=== PATIENT | female | born 1985 | race Caucasian/White ===

== ENCOUNTER 2019-05-16 02:10 | Outpatient (CLI) | payer BC, SELFPAY ==
--- NOTE | 2019-05-16 07:11 | DI.US_ITS ---
EXAM: US OB 1ST TRIMESTER CLINICAL HISTORY: ? DATES TECHNIQUE: Ultrasound performed using standard protocol. COMPARISON: No exams were available for comparison FINDINGS: Ob ultrasound was performed utilizing 1st trimester protocol. There is a single viable intrauterine gestation with crown-rump length measurements consistent with gestational age of 10 weeks 2 days and EDC 12/10/19. heart rate is 163 BPM.
== END 2019-05-16 02:30 ==
PROVIDERS: PCP Nurse Practitioner Community Health; Visit Provider Midwife
DX: Z34.91 Encounter for supervision of normal pregnancy, unspecified, first trimester (principal); Z3A.10 10 weeks gestation of pregnancy
CPT/HCPCS: 76801

== ENCOUNTER 2019-09-10 08:00 | Outpatient (CLI) | payer BC, SELFPAY | END 2019-09-10 08:20 | PROVIDERS: PCP Nurse Practitioner Community Health; Visit Provider Obstetrics & Gynecology | DX: R69 Illness, unspecified (principal) ==

== ENCOUNTER 2019-11-25 03:40 | Inpatient (IN) | payer BC, SELFPAY ==
--- NOTE | 2019-11-25 04:43 | W.PM.HP.N ---
Date of service: 11/25/19 Time of Service: 04:44 Assessment and Plan Assessment and plan (1) Breech presentation delivered: Status: Acute History of Present Illness History of Present Illness Chief Complaint: Jaciel breech presentation in labor Narrative: Patient is a 34-year-old G1 female with a estimated date of delivery 12/12/2019 by a LMP who has received care from TEDDY Beltran, and who was diagnosed with a jaciel breech presentation complete cervical dilatation and getting maternal expulsive efforts. Patient had been laboring at home for the past 24 hours with reassuring status. The decision was made to transport the patient in a private car to [facility]. Upon arrival at [facility] she was transported via wheelchair to the operating room where a team was waiting with a double OR set up. Sterile vaginal exam showed patient to be completely dilated with a jaciel breech presentation with spine to maternal left and +2 station. heart rate in the 150 range category 1 tracing no decelerations. Estimated weight 3600 gm. After discussion with the anesthesia, nursing, and midwifery providers the decision was made to proceed with a vaginal breech delivery. Examination revealed adequate pelvic dimensions with excellent maternal expulsive effort. Patient continued to push effectively and the buttocks were delivered followed by the trunk. The fetus legs trunk were supported with a sterile towel allowing the position to be parallel to the floor. At the level of the shoulder blades both middle arms were swept across the chest and using a Brach maneuver the head was delivered atraumatically. The umbilical cord was doubly clamped and cut and the infant handed off to the waiting pediatric team. We were unable to obtain a arterial cord gas and instead a venous cord gas sample was obtained. Oxytocin infusion was initiated and the placenta was delivered intact with a normal configuration and a three-vessel cord over an intact perineum. Estimated blood loss: 200 cc Review of Systems Constitutional Comments: Patient experienced onset of contractions with spontaneous rupture of membranes at 11/24/2019 at 2200 hrs. She labored at home with reassuring heart rate it was found to be 8 cm at approximately 01:43 morning. When she was completed dilated meconium was noted and breech presentation was diagnosed. Respiratory Respiratory: Reports system reviewed and no additional complaints, except as documented Gastrointestinal Gastrointestinal: Reports system reviewed and no additional complaints, except as documented Genitourinary Genitourinary: Reports as per [facility] Integumentary/Breasts Skin/Breast: Reports system reviewed and no additional complaints, except as documented Psychiatric Psychiatric: Reports as per HPI (Tolerating contractions well comfortable with plan for vaginal breech deliv) [facility] Medical History (Updated 11/25/19 @ 05:42 by Karen Maynard MD) Breech presentation delivered (Acute) 11/25/2019. Breech presentation of fetus palpable vaginally (Acute) History of UTI (Acute) Social History (Updated 11/25/19 @ 05:15 by Karen Maynard MD) Smoking/Tobacco Use Status: Former Tobacco Use Alcohol Intake: never Details: None during Drug use: Never Household members: significant other and other Details: [place] Number of Children: 1 History History 1 Para 1 Hx # Term Pregnancies 1 Multiple births Hx # Pregnancies Ectopic pregnancies AB induced Hx Number of Living Children 1 AB spontaneous Meds Home Medications and Allergies Home Medications Medication Instructions Recorded Confirmed Type Unknown [No Known Home Meds] 11/25/19 11/25/19 History Allergies Allergy/AdvReac Type Severity Reaction Status Date / Time No Known Allergies Allergy Verified 11/25/19 05:34 Exam Narrative Exam Narrative: Patient had been laboring at home for the past 24 hours with reassuring status. The decision was made to transport the patient in a private car to [facility]. Upon arrival at [facility] she was transported via wheelchair to the operating room where a team was waiting with a double OR set up. Sterile vaginal exam showed patient to be completely dilated with a jaciel breech presentation with spine to maternal left and +2 station. heart rate in the 150 range category 1 tracing no decelerations. Estimated weight 3600 gm. After discussion with the anesthesia, nursing, and midwifery providers the decision was made to proceed with a vaginal breech delivery. Examination revealed adequate pelvic dimensions with excellent maternal expulsive effort. Patient continued to push effectively and the buttocks were delivered followed by the trunk. The fetus legs trunk were supported with a sterile towel allowing the position to be parallel to the floor. At the level of the shoulder blades both middle arms were swept across the chest and using a Brach maneuver the head was delivered atraumatically. The umbilical cord was doubly clamped and cut and the handed off to the waiting pediatric team. We were unable to obtain a arterial cord gas and instead a venous cord gas sample was obtained. Oxytocin infusion was initiated and the placenta was delivered intact with a normal configuration and a three-vessel cord over an intact perineum. Estimated blood loss: 200 cc Chest Chest: normal inspection of the chest Resp Effort & Inspection: normal respiratory effort Auscultation: clear to auscultation bilaterally Cardio Rate: regular rate Rhythm: regular rhythm Manual OB Exam: dilated 10, effaced fully and station '+2 (On presentation to the OR) Amniotic Fluid: meconium (Black tarry meconium present in the vaginal canal) Results Labs Result diagrams: 11/25/19 Unknown COVID-19 Screening Have you,or household,traveled outside [place] in last 14 days?: No Recent travel in the [place] within the last 14 days?: No Recent out of the country travel within the last 14 days?: No Exposure or possible exposure to illness during travel?: No Had IN PERSON contact w/suspected or confirmed C-19 person: No Have you had the following symptoms in the past few days?: No
[2019-11-25 05:23] LABS: HCT 37.3 % (36.0-46.0); HGB 12.4 g/dL (11.2-15.7); MCH 31.2 pg (27.0-33.0); MCHC 33.2 % (32.0-36.0); MCV 93.7 fL (80-95); MPV 12.5 fL (8.0-11.0); Platelet Count 132 10^3/uL (130-400); RBC 3.98 10^6/uL (3.93-5.22); RDW 12.1 % (11.7-14.6); RDW-SD 41.7 fL; WBC 18.12 10^3/uL (4.4-10.8)
--- NOTE | 2019-11-25 10:03 | W.PM.DS.N ---
Date of service: 11/25/19 Time of Service: 10:03 DS: Diagnosis Discharge Diagnosis (1) Breech presentation delivered: Status: Acute Discharge Plan Disposition Patient Disposition: HOME Condition: Good Discharge Details Reason For Visit: Admit Date/Time: 11/25/19 03:40 Admit Provider: Karen Maynard Attending Provider: Karen Maynard Primary Care Provider: Michael Orlando Hospital Course Hospital Course: Patient is a 34-year-old G1, P1 female who underwent a spontaneous vaginal delivery of a viable female infant in the jaciel breech presentation. She will be named Elsy. Pt has been under the care of Heather Hatch of [facility] for an uncomplicated course. She was laboring at home when the jaciel breech presentation was diagnosed. Pt was transported to [facility] and underwent a delivery in the operating room with a double set up. The infant weighed 2645 g (5 pounds 8 ounces). course was uncomplicated she was discharged home the day delivery with plans for follow-up with her medical assembler and the pediatric care provider for the . Home Meds and New Rx's Prescriptions: No Action No Known Home Meds RF: 0 Discharge Instructions Stand Alone Forms: BC Post Vaginal Deliver, BC Instructions Activity:: Activity as Tolerated Equipment/Supplies:: No Equipment Needed Diet:: As Tolerated Discharge Orders Discharge Orders: Discharge Order (Routine); Ordered 11/25/19 Ordered By: Karen Maynard DS: Summary Status at Discharge Functional status at discharge: independent ambulation Overall status at discharge: patient is back to baseline Mental Status: mental status grossly normal Speech and Movement: speech and movement normal Mood: congruent mood Affect: normal affect Exam Psych Mental Status: mental status grossly normal Speech and Movement: speech and movement normal Mood: congruent mood Affect: normal affect DS: Data Data Completed and Pending Labs on day of discharge: Labs from last 24 hours 11/25/19 11/25/19 11/25/19 05:15 05:15 05:15 WBC 18.12 H RBC 3.98 Hgb 12.4 Hct 37.3 MCV 93.7 MCH 31.2 MCHC 33.2 RDW 12.1 Plt Count 132 MPV 12.5 H COVID-19 PCR Pending Nasopharyn COVID-19 PCR Pending Ref Test Perform Site Pending Patient ABO/Rh Antibody Screen Screen Pending Unit Expiration Date Product Lot # 11/25/19 05:15 WBC RBC Hgb Hct MCV MCH MCHC RDW Plt Count MPV COVID-19 PCR Nasopharyn COVID-19 PCR Ref Test Perform Site Patient ABO/Rh A Negative Antibody Screen Negative Screen Unit Expiration Date [id number] Product Lot # [id number] [facility] Medical History (Updated 11/25/19 @ 05:42 by Karen Maynard MD) Breech presentation delivered (Acute) 11/25/2019. Breech presentation of fetus palpable vaginally (Acute) History of UTI (Acute) Social History (Updated 11/25/19 @ 05:15 by Karen Maynard MD) Smoking/Tobacco Use Status: Former Tobacco Use Alcohol Intake: never Details: None during Drug use: Never Household members: significant other and other Details: [place] Number of Children: 1 History History 1 Para 1 Hx # Term Pregnancies 1 Multiple births Hx # Pregnancies Ectopic pregnancies AB induced Hx Number of Living Children 1 AB spontaneous
[2019-11-25 14:26] LABS: COVID-19 RT-PCR UVMMC Result Negative (Negative)
== END 2019-11-25 14:15 | disposition home or self-care (01) | DRG 807 ==
PROVIDERS: Admitting Provider Obstetrics & Gynecology Gynecology; PCP Nurse Practitioner Community Health; Visit Provider Obstetrics & Gynecology Gynecology
PROC: 10E0XZZ Delivery of Products of Conception, External Approach (ICD-10-PCS; CPT 59409; principal; 2019-11-25 03:45)
DX: O32.1XX0 Maternal care for breech presentation, not applicable or unspecified (principal); Z37.0 Single live birth; O77.0 Labor and delivery complicated by meconium in amniotic fluid; Z11.59 Encounter for screening for other viral diseases; O75.89 Other specified complications of labor and delivery; Z67.11 Type A blood, Rh negative; Z3A.37 37 weeks gestation of pregnancy
CPT/HCPCS: 36415; 85027; 85461; 86850; 86900; 86901; 90384; 99222; 99238; U0003; J2370; J2405; J2790

== ENCOUNTER 2019-12-09 19:04 | Emergency (ER) | payer BC, SELFPAY ==
[2019-12-09 19:12] VITALS: BP 113/70; PULSE 110; RESP 18; TEMP 37
--- NOTE | 2019-12-09 19:15 | W.ED.GENAD ---
Discharge Plan Disposition Patient Disposition: HOME Condition: Good Discharge Details Chief Complaint: FlankPain Clinical Impression: Back muscle spasm, Breast pain Primary Care Provider: Michael Orlando ED Provider: Terra Jimenez Home Meds and New Rx's Prescriptions: No Action No Known Home Meds RF: 0 Discharge Instructions Instructions: Muscle Spasm (ED) Additional Instructions: In regard to your breast pain, please try and apply heat, massage this area while your child is nursing. Alternatively, you could help. I do not see any evidence to suggest mastitis at this point. You are quite tight with muscle spasm noted on the left side of your back. Please encourage gentle stretching, heat. Tylenol and/or ibuprofen as needed for discomfort. You do not have any kidney discomfort today. As you are no pain with urination and frequency have subsided, would like to hold off on treating you with antibiotics for urinary tract infection until the culture of your urine has come back. We will contact you with any positive results. If you develop fevers, chills, pain with urination, abdominal pain, vomiting or other new/worsening symptom please seek care urgently once again. Otherwise, please keep your follow-up appointment next week with. Referrals: Michael Orlando [Primary Care Provider] - Discharge Data Discharge Date/Time-TO BE ENTERED AT DEPARTURE: 12/09/19 20:35 Medical Decision Making Please see HPI. Patient 2 week pospartum. Has left breast pain, states it has been present for the past few days. On exam, area she is indicating is firm but equal to that of the right breast. Most consistent with milk. No evdience to suggest infection. No fluctuance, erythema, warmth. She reports being afebrile and is afebrile here. She is slightly tachycardic but she appears anxious, nontoxic. She is also endorsing left flank pain. No CVA tenderness on exam. She denies other symptoms of UTI. She has notable spasm, L>R of the paraspinal lower thoracic spine. She states that it is in this area she has discomfort but none elicited with palpation. She does have discomfort with extension of the spine in this area. She states that she has been hunching forward when breast feeding. We discussed changing position. She has some mild abdominal discomfort on palpation but had not noted this prior to coming in. She has no peritoneal findings. We discussed [id number] this up further but she would prefer to wait and will come back if this worsens. Urine was contaminated, rare bacteria. It has been send for culture. Her urine is not overly concerning for infection and her urinary symptoms have resolved. She has cause identified on exam for her flank pain. We discussed starting her on abx vs. watch and wait approproach. She would prefer to wait. She was given strict return precautions. She has appointment next week with OB. She will increase hydration, reposition infant when feeding and stretch. All of her questions and concerns were addressed, she is ijn agreement with this plan. We will call if there is concern for infection on culture. HPI General Mode of arrival: ambulatory. Date/Time Provider Initiated Documentation: 12/09/19 19:15. Limitations to Documentation: no limitations. Information obtained by: patient, RN notes reviewed and old records reviewed. HPI Narrative: Loli is a pleasant 34 year old female who is 2 weeks post . Had breach delivery in OR. States that for the 1.5 weeks she was having dysurea which has since resolved. She denies increased frequency/urgency. She states that over the past few days she has develops left flank pain. She thought this was associated with positioning for breast feeding. However, her employment interviewer was appropriately concerned for potential pyelonephritis with her now resolved dysurea. She denies fevers/chills. She denies chane in bowel habits. States that vaginal bleeding has been slowing down and is having minimal at this time. She states that she is also having left breast pain. States that this is the side her child typically nurses from and that she uses a pump on the right. She has not noted any discoloration. She states that she is otherwise feeling well. Related Data Home Medications Medication Instructions Recorded Confirmed Unknown [No Known Home Meds] 11/25/19 11/25/19 Allergies Allergy/AdvReac Type Severity Reaction Status Date / Time No Known Allergies Allergy Verified 11/25/19 05:34 General Stated Complaint: FlankPain SENTHIL: 3 Review of Systems Constitutional Constitutional: Reports as per HPI, Denies chills, Denies fatigue, Denies fever(s) and Denies headache(s) ENT Ears, Nose, Mouth, and Throat: Denies headache(s) Cardiovascular Cardiovascular: Reports as per HPI, Denies chest pain and Denies dyspnea Respiratory Respiratory: Reports as per HPI, Denies cough and Denies dyspnea Gastrointestinal Gastrointestinal: Reports as per HPI Genitourinary Genitourinary: Reports as per HPI Musculoskeletal Musculoskeletal: Reports as per HPI and Reports back pain Integumentary/Breasts Skin/Breast: Reports as per HPI and Denies rash Neurologic Neurologic: Reports as per HPI and Denies headache(s) Endocrine Endocrine: Denies fatigue [facility] Medical History (Updated 12/09/19 @ 20:05 by MIKE Miranda) Breech presentation delivered (Acute) 11/25/2019. Breech presentation of fetus palpable vaginally (Acute) History of UTI (Acute) Social History Smoking/Tobacco Use Status: Former Tobacco Use Alcohol Intake: never Details: None during Drug use: Never Household members: significant other and other Details: [place] Number of Children: 1 History History 1 Para 1 Hx # Term Pregnancies 1 Multiple births Hx # Pregnancies Ectopic pregnancies AB induced Hx Number of Living Children 1 AB spontaneous Exam Const General: cooperative, healthy appearing, comfortable, no acute distress, well developed and anxious Nutritional Appearance: average body habitus and well nourished Orientation: alert and awake HENMT Head: normal to inspection Mouth: moist mucous membranes Chest Breast inspection: normal inspection of the breasts, normal inspection of the axillae and Other (no erythema, warmth, drainage. No discharge from nipples) Breast palpation: normal palpation of the breasts (firm areas to bilateral breasts upper outer corners, equal), normal palpation of the axillae and no axillary lymphadenopathy Resp Effort & Inspection: normal respiratory effort, able to speak in complete sentences and no respiratory distress Auscultation: clear to auscultation bilaterally, no rales, no rhonchi and no wheezes Cardio Rate: regular rate Rhythm: regular rhythm Heart Sounds: S1 normal and S2 normal GI Inspection: normal to inspection Palpation: soft, no hepatosplenomegaly, not firm, no guarding, no masses, not rigid and tender (mild tenderness lower abdomen, R>L) not at McBurney's point, Ely's sign negative, obturator sign negative, psoas sign negative and with no rebound tenderness Percussion: normal to percussion Auscultation: normal bowel sounds Back/Spine/Pelvis Back: no CVA tenderness Thoracic/Lumbar Spine: thoracic and lumbar spine normal to inspection, thoraco-lumbar ROM normal, No paraspinal tenderness, No thoraco-lumbar ROM limited, thoraco-lumbar spasm (notable spasm on left side, no pain with palp), No thoracic spinal tenderness, No lumbar spinal tenderness and No straight leg raise positive Sacroiliac joints: bilaterally nontender Skin General skin exam: no rashes or lesions noted Trauma: no lacerations or abrasions Neuro General: patient alert and patient awake Cognition: normal cognition Speech: speech normal Gait: normal gait Psych Appearance: grossly normal and well kempt Mental Status: mental status grossly normal Speech and Movement: speech and movement normal Course Vital Signs Vital signs: Vital Signs Temperature 37.0 C 12/09/19 19:12 Pulse 110 H 12/09/19 19:12 Respiratory Rate 18 12/09/19 19:12 Blood Pressure 113/70 12/09/19 19:12 Temperature 37.0 C 12/09/19 19:12 Temperature Source Temporal Artery Scan 12/09/19 19:12 Pulse 110 H 12/09/19 19:12 Respiratory Rate 18 12/09/19 19:12 Respiratory Effort Non-Labored 12/09/19 19:12 Blood Pressure 113/70 12/09/19 19:12 Blood Pressure Position Sitting 12/09/19 19:12 Pain Level 7 12/09/19 19:12
[2019-12-09 19:26] LABS: Bilirubin Negative (Negative); Blood Moderate (Negative); Clarity Clear (Clear); Glucose Negative (Negative); Ketones Negative (Negative); Leukocyte Esterase Small (Negative); Nitrite Negative (Negative); Urobilinogen 0.2 EU/dL (Up TO 0.2)
[2019-12-09 19:48] LABS: Bacteria Rare HPF (Negative); C & S Indicated? Yes; Crystals Negative HPF (Negative); Epithelial Cells Many HPF (Negative); Mucus Negative (Negative); Other Cells Mod Transitional (Negative); RBC 0-2 HPF (0-2)
== END 2019-12-09 20:35 | disposition home or self-care (01) ==
PROVIDERS: Nurse Practitioner Family; Emergency Provider Physician Assistant; PCP Nurse Practitioner Community Health
DX: O92.29 Other disorders of breast associated with pregnancy and the puerperium (principal); M62.830 Muscle spasm of back; Z87.440 Personal history of urinary (tract) infections
CPT/HCPCS: 99282; 81003; 81015; 87086; 99283

== ENCOUNTER 2020-03-11 19:19 | Outpatient (REF) | payer BC, SELFPAY ==
[2020-03-13 16:40] LABS: COVID-19 RT-PCR Result NEGATIVE (Negative)
== END 2020-03-11 19:39 ==
LOC: NCHCN 19:19
PROVIDERS: PCP Nurse Practitioner Community Health; Visit Provider Nurse Practitioner Family
DX: Z20.828 Contact with and (suspected) exposure to other viral communicable diseases (principal)
CPT/HCPCS: U0003

== ENCOUNTER 2020-03-17 02:11 | Outpatient (CLI) | payer BC, SELFPAY ==
[2020-03-19 16:13] LABS: COVID-19 RT-PCR Result NEGATIVE (Negative)
== END 2020-03-17 02:31 ==
PROVIDERS: PCP Nurse Practitioner Community Health; Visit Provider Nurse Practitioner Family
DX: Z20.828 Contact with and (suspected) exposure to other viral communicable diseases (principal)
CPT/HCPCS: U0003

== ENCOUNTER 2020-08-06 10:46 | Outpatient (REF) | payer BC, SELFPAY ==
--- NOTE | 2020-08-06 10:00 | PAPFT_PTH ---
PATIENT: Ilia Shankar LOC: [facility] U#:[id number] AGE/SX: 35/F ROOM: RE08/06/[address]: Alex Trinh : 1985 BED: DIS: 08/06/2020 SPEC #: [id number] RECD: 08/06/20 15:25 STATUS: MAY REKeith #: [id number] NANDO: 08/06/20 10:[address]: Alex Trinh DEPT: [facility] Cytology RECD BY: Yomaira Batres ENTERED: 08/06/20 15:25 SP TYPE: PAPFT OTHR DR: Michael Orlando Tissues: 1 - CX/ENDOCX FOR PAP SMEARS Procedures: PAP THIN PREP/UVM Screening HPV DNA PROBE Comments: [id number]
== END 2020-08-06 10:47 | disposition home or self-care (01) ==
LOC: NCHCN 10:46
PROVIDERS: PCP Nurse Practitioner Community Health; Visit Provider Nurse Practitioner Family
DX: Z00.00 Encounter for general adult medical examination without abnormal findings (principal); Z12.4 Encounter for screening for malignant neoplasm of cervix; Z11.51 Encounter for screening for human papillomavirus (HPV)
CPT/HCPCS: 88142; 87624

== ENCOUNTER 2021-03-22 16:00 | Outpatient (REF) | payer BC, SELFPAY | END 2021-03-22 16:01 | disposition home or self-care (01) | LOC: LBN 16:00 | PROVIDERS: PCP Nurse Practitioner Community Health; Visit Provider Nurse Practitioner Family | DX: R35.0 Frequency of micturition (principal) | CPT/HCPCS: 87086; 87480; 87510; 87660 ==

== ENCOUNTER 2021-06-24 01:46 | Outpatient (CLI) | payer OTHER, SELFPAY ==
[2021-06-24 10:26] LABS: Abs Immature Grans 0.03 10^3/uL (0.0-0.06); Absolute Basophil Count 0.01 10^3/uL (0.0-0.2); Absolute Eosinophil Count 0.04 10^3/uL (0.0-0.7); Absolute Lymphocyte Count 1.48 10^3/uL (1.2-3.4); Absolute Monocyte Count 0.45 10^3/uL (0.1-0.8); Absolute Neutrophil Count 5.47 10^3/uL (1.2-6.7); Basophils % 0.1; Eosinophils % 0.5; HCT 38.6 % (36.0-46.0); HGB 12.6 g/dL (11.2-15.7); Immature Grans % 0.4; Lymphocytes % 19.8; MCH 31.3 pg (27.0-33.0); MCHC 32.6 % (32.0-36.0); MPV 11.4 fL (8.0-11.0); Neutrophils % 73.2; Nucleated RBC 0 %; Platelet Count 153 10^3/uL (130-400); RBC 4.02 10^6/uL (3.93-5.22); RDW 12.2 % (11.7-14.6); RDW-SD 43.2 fL; WBC 7.48 10^3/uL (4.4-10.8)
== END 2021-06-24 01:47 | disposition home or self-care (01) ==
LOC: LBO 01:46
PROVIDERS: PCP Nurse Practitioner Community Health; Visit Provider Midwife
DX: Z34.80 Encounter for supervision of other normal pregnancy, unspecified trimester (principal)
CPT/HCPCS: 86850; 86900; 86901; 85025

== ENCOUNTER 2021-07-21 00:59 | Outpatient (CLI) | payer OTHER, SELFPAY ==
[2021-07-21 01:33] VITALS: BP 111/55; PULSE 67; TEMP 36.7
[2021-07-21 02:04] LABS: Bilirubin Negative (Negative); Blood Negative (Negative); Clarity Sl Cloudy (Clear); Glucose Negative (Negative); Ketones Negative (Negative); Leukocyte Esterase Negative (Negative); Nitrite Negative (Negative); Urobilinogen 0.2 EU/dL (Up TO 0.2); pH 7.5 (5-8)
[2021-07-21 02:31] LABS: Fetal Fibronectin Negative (Negative)
--- NOTE | 2021-07-21 07:15 | PDOC.NST_ITS ---
Date of service: 07/21/21 Time of Service: 07:15 NST Evaluation Reason for NST Reasons for Nonstress Test: OTHER, SEE COMMENT Reason for NST Other: Rule out labor Gestational Age Gestational Age in Weeks and Days: 32 Weeks and 0Days Test and Monitor Explained Test/Monitor Explained: Test Explained, Monitor Explained and Patient Verbalized Understanding Vital Signs Blood Pressure: 111/55 Pulse: 67 Temperature: 98.1 F Urine Results Urine Protein: Negative Urine Ketones: Negative Urine Glucose: Negative Urine Blood: Negative NST Information Date on Monitor: 07/21/21 Time on Monitor: 01:39 Date off Monitor: 07/21/21 Time off Monitor: 02:40 Total Time on Monitor: 61 NST Interventions: PO Hydration Contraction Frequency: patient had 4 contractions q3 minutes that stopped at 0202 NST Evaluation Patient States Movement: Present FHR Baseline: 135 Variability: Moderate 6-25 bpm Accelerations: 15x15 and Prolonged Decelerations: Variable NST Results: Reactive Note NST Note Note: Pt is a client of [facility] who called Heather Hatch [facility] to report q 10min contractions since 2200 07/20/21. Pt was eval on BC by myself. FFN neg. No further contractions after arrival on . SVE Closed. 75%, -1, midposition and soft. No focal abdominal pain. Pt was discharged to home with instructions to decrease activity level today and f/u with [facility] today. She is agreeable to the plan. NST Reviewed and Verified by: Karen Maynard
[2021-07-21 07:18] VITALS: BP 111/55; PULSE 67; TEMP 36.7
== END 2021-07-21 02:50 | disposition home or self-care (01) ==
LOC: BCD 01:33 → OBS 02:08
PROVIDERS: PCP Nurse Practitioner Community Health; Visit Provider Obstetrics & Gynecology Gynecology
DX: O47.03 False labor before 37 completed weeks of gestation, third trimester (principal); Z3A.32 32 weeks gestation of pregnancy
CPT/HCPCS: 59025; 81003; 82731

== ENCOUNTER 2021-08-30 19:59 | Outpatient (REF) | payer OTHER, SELFPAY | END 2021-08-30 20:00 | disposition home or self-care (01) | LOC: LBN 19:59 | PROVIDERS: PCP Nurse Practitioner Community Health; Visit Provider Nurse Practitioner Family | DX: R35.0 Frequency of micturition (principal) | CPT/HCPCS: 87086 ==

== ENCOUNTER 2021-11-16 19:22 | Outpatient (REF) | payer OTHER, SELFPAY | END 2021-11-16 19:23 | disposition home or self-care (01) | LOC: LBN 19:22 | PROVIDERS: PCP Nurse Practitioner Community Health; Visit Provider Advanced Practice Midwife | DX: N94.10 Unspecified dyspareunia (principal) | CPT/HCPCS: 87480; 87510; 87660 ==

== ENCOUNTER 2022-04-01 07:33 | Emergency (ER) | payer OTHER, SELFPAY ==
[2022-04-01 07:42] VITALS: BP 120/74; PULSE 75; RESP 18; TEMP 37; O2SAT 99
--- NOTE | 2022-04-01 08:00 | DI.RAD_ITS ---
Exam(s) XR WRIST LT COMPLETE EXAM: XR WRIST LT COMPLETE CLINICAL HISTORY: pain and swelling post fall. TECHNIQUE: 2D digital imaging was performed. COMPARISON: No exams were available for comparison FINDINGS: 3 views No evidence of fracture or dislocation nor significant ulnar variance. Scaphoid and scapholunate dis tance are normal. Bone density normal. No osseous lesions. IMPRESSION: No significant osseous findings in the wrist. DATA REPOSITORY: RADIATION DOSE DELIVERED:
--- NOTE | 2022-04-01 08:17 | ED.GENADUL_ITS ---
Discharge Plan Disposition Patient Disposition: Home Condition: Stable Discharge Details Clinical Impression: Muscle strain of left wrist, Concussion Primary Care Provider: Michael Orlando ED Provider: Yomaira Petty Home Meds and New Rx's Prescriptions: No Action No Known Home Meds Discharge Instructions Instructions: Muscle Strain (ED), Concussion (ED) Additional Instructions: Take ibuprofen and Tylenol as needed for pain Return with vomiting, worsening headache, or with any new or worsening complaints Repeat x-ray in 1 week with persistent pain Please refer to enclosed packet regarding concussion and muscle strain Use splint to allow your wrist to rest for several days, use wrist as tolerated Discharge Data Discharge Date/Time-TO BE ENTERED AT DEPARTURE: 04/01/22 09:13 Medical Decision Making This 36-year-old female who presents with history of fall yesterday after slipping on ice, hitting her head without loss of consciousness and left wrist pain Patient likely has concussion signs and symptoms, she does not warrant a CT scan, she has a nonfocal neurological exam with a persistent but not worsening headache and is not vomiting and completely alert and oriented in the absence of loss of consciousness or any anticoagulation, we talked about CT imaging, however think the risk of radiation outweighs benefit at this time She will return should she have new or worsening complaints X-ray of her left wrist does not show evidence of acute abnormality She is placed in a splint for comfort Repeat x-ray in 1 week with persistent symptoms recommended Discharged home in stable condition with stable vitals HPI General Date/Time Provider Initiated Documentation: 04/01/22 08:03 . HPI Narrative: This 36-year-old female presents with report of headache after fall and hitting her head on ice yesterday and left wrist pain. Headache is persistent but not changing and denies any loss of consciousness, nausea vomiting, vision change, or chance of . Denies any neck discomfort or coagulopathy. Was ambulatory after the event. Predominantly presents today secondary to persistent left wrist pain worse with movement Related Data Home Medications Medication Instructions Recorded Confirmed Unknown [No Known Home Meds] 11/25/19 11/16/21 Allergies Allergy/AdvReac Type Severity Reaction Status Date / Time No Known Allergies Allergy Verified 04/01/22 07:45 General Stated Complaint: HeadInjury SENTHIL: 4 Review of Systems All systems reviewed & are unremarkable except as noted in HPI and below PFSH All Active Problems (Updated 04/01/22 @ 08:45 by MIKE Neves) Muscle strain of left wrist (Acute) Concussion (Acute) Dyspareunia, female (Acute) Medical History (Updated 04/01/22 @ 08:45 by MIKE Neves) Breech presentation delivered 11/25/2019. Breech presentation of fetus palpable vaginally History of UTI Care by [facility]: Heather Mccloud LMVT Social History Smoking/Tobacco Use Status: Former Tobacco Use Smoking risk assessment performed?: Yes Alcohol Intake: current Alcohol Intake frequency: holidays/special occasions only Details: None during Drug use: Never Substance use type: does not use Household members: significant other and other Details: [place] Number of Children: 1 Do you feel safe at home: Yes Do you feel safe in your relationship?: Yes History History 1 Para 1 Hx # Term Pregnancies 1 Multiple births Hx # Pregnancies Ectopic pregnancies AB induced Hx Number of Living Children 1 AB spontaneous Exam Const General: cooperative, comfortable and no acute distress Orientation: alert and oriented x3 HENMT Other: No visible sign of trauma, no hemotympanum Eyes Pupils: PERRL EOM: EOM intact bilaterally Neck Other: No midline tenderness Chest Chest: normal inspection of the chest Resp Effort & Inspection: normal respiratory effort Auscultation: clear to auscultation bilaterally Cardio Rate: regular rate Rhythm: regular rhythm GI Inspection: normal to inspection Other: No abdominal tenderness Skin General skin exam: no rashes or lesions noted Neuro General: patient alert and patient oriented x3 Other: Strength and sensation intact distally, GCS 15, ambulatory steady gait Extrem General: normal to inspection Other: Left wrist with tenderness, no visible signs of trauma, neurovascularly intact, no tenderness to hand, elbow, or shoulder Course Vital Signs Vital signs: Vital Signs Temperature 37.0 C 04/01/22 07:42 Pulse 75 04/01/22 07:42 Respiratory Rate 18 04/01/22 07:42 Blood Pressure 120/74 04/01/22 07:42 Pulse Oximetry 99 04/01/22 07:42 Temperature 37.0 C 04/01/22 07:42 Temperature Source Temporal Artery Scan 04/01/22 07:42 Pulse 75 04/01/22 07:42 Respiratory Rate 18 12/24/22 07:42 Respiratory Effort Non-Labored 04/01/22 07:46 Respiratory Depth Normal 04/01/22 07:46 Blood Pressure 120/74 04/01/22 07:42 Blood Pressure Position Sitting 04/01/22 07:42 Pulse Oximetry 99 04/01/22 07:42 Oxygen Delivery Method Room Air 04/01/22 07:42 Oxygen Flow Rate 0 04/01/22 07:42 PAWSS Have you Been Recently Intoxicated or Drunk Within the Last 30 days?: No Have you Ever Experienced Previous Episodes of Alcohol Withdrawal?: No Have you ever Experienced Withdrawal Seizures?: No Have you ever Experienced Delirium Tremens(DT)s?: No Have you ever undergone Alcohol Rehabilitation Treatment (i.e, inpt ot outpatient treatment programs)?: No Have you ever Experienced Blackouts?: No Have you ever Combined Alcohol with other Downers within the last 90 days?: No Have you ever Combined Alcohol with any other Substance of Abuse during the last 90 days?: No Positive Blood Alcohol level on Presentation? [PCS.BAL]: No Evidence of Increased Autonomic Activity (i.e. HR>120, tremor, sweating, agitation, nausea)?: No Result: 0
[2022-04-01 08:32] VITALS: BP 102/64; PULSE 67; RESP 16; TEMP 36.7; O2SAT 98
--- NOTE | 2022-04-01 08:36 | DI.VRAD_ITS ---
PROCEDURE INFORMATION: Exam: XR Left Wrist Exam date and time: 04/01/2022 8:24 AM Age: 36 years old Clinical indication: Other: Pain and swelling post fall TECHNIQUE: Imaging protocol: Radiologic exam of the Left wrist. Views: 3 or more views. COMPARISON: No relevant prior studies available. FINDINGS: Bones/joints: No acute fracture or dislocation is identified. No focal lytic or blastic lesion is identified. There is no osseous erosion or cortical destruction. Soft tissues: Grossly unremarkable. IMPRESSION: No acute fracture or dislocation identified. Dictated and Authenticated by: Ken Oneal MD. Ordering:MELISSA Burnette MD
== END 2022-04-01 09:13 | disposition home or self-care (01) ==
PROVIDERS: Emergency Provider Physician Assistant; PCP Nurse Practitioner Community Health
DX: S66.912A Strain of unspecified muscle, fascia and tendon at wrist and hand level, left hand, initial encounter (principal); S06.0X0A Concussion without loss of consciousness, initial encounter; W00.0XXA Fall on same level due to ice and snow, initial encounter; W22.8XXA Striking against or struck by other objects, initial encounter
CPT/HCPCS: 99283; 73110; 99282

== ENCOUNTER 2022-06-14 17:13 | Outpatient (REF) | payer OTHER, SELFPAY | END 2022-06-14 17:14 | disposition home or self-care (01) | LOC: LBN 17:13 | PROVIDERS: PCP Nurse Practitioner Community Health; Visit Provider Nurse Practitioner Family | DX: R10.9 Unspecified abdominal pain (principal); R30.0 Dysuria | CPT/HCPCS: 87086; 87480; 87510; 87660 ==

== ENCOUNTER 2022-09-01 16:08 | Outpatient (REF) | payer OTHER, SELFPAY ==
[2022-09-01 16:49] LABS: Anion Gap 5.7 mmol/L (3-11); BUN 17 mg/dL (7-18); CO2 28.3 mmol/L (21.0-32.0); CREATININE 0.7 mg/dL (0.55-1.02); Chloride 105 mmol/L (98-107); Estimated GFR 113.46 (mL/min/1.73m2); Glucose 89 mg/dL (74-106); Potassium 4.2 mmol/L (3.5-5.1); Sodium 139 mmol/L (136-145); TSH (W/Ref FT4) 2.35 uIU/mL (0.36-3.74)
[2022-09-01 17:42] LABS: Hemoglobin A1C 4.9 % (<5.7)
== END 2022-09-01 16:09 | disposition home or self-care (01) ==
LOC: NCHCN 16:08
PROVIDERS: PCP Nurse Practitioner Community Health; Visit Provider Nurse Practitioner Family
DX: B37.2 Candidiasis of skin and nail (principal)
CPT/HCPCS: 80048; 83036; 84443

== ENCOUNTER 2022-09-25 13:59 | Outpatient (REF) | payer OTHER, SELFPAY | END 2022-09-25 14:00 | disposition home or self-care (01) | LOC: LBN 13:59 | PROVIDERS: PCP Nurse Practitioner Community Health; Visit Provider Advanced Practice Midwife | DX: N89.8 Other specified noninflammatory disorders of vagina; N94.19 Other specified dyspareunia | CPT/HCPCS: 87480; 87510; 87660 ==

== ENCOUNTER 2023-04-06 16:43 | Outpatient (REF) | payer OTHER, SELFPAY | END 2023-04-06 16:44 | disposition home or self-care (01) | LOC: NCHCN 16:43 | PROVIDERS: PCP Nurse Practitioner Community Health; Visit Provider Nurse Practitioner Family | DX: Z00.00 Encounter for general adult medical examination without abnormal findings (principal) | CPT/HCPCS: 87480; 87510; 87660 ==

== ENCOUNTER 2023-04-12 14:11 | Outpatient (REF) | payer OTHER, SELFPAY | END 2023-04-12 14:12 | disposition home or self-care (01) | LOC: NCHCN 14:11 | PROVIDERS: PCP Nurse Practitioner Community Health; Visit Provider Nurse Practitioner Family | DX: R10.2 Pelvic and perineal pain (principal) | CPT/HCPCS: 87480; 87510; 87660 ==

== ENCOUNTER 2023-05-14 11:59 | Outpatient (REF) | payer OTHER, SELFPAY | END 2023-05-14 12:00 | disposition home or self-care (01) | LOC: LBN 11:59 | PROVIDERS: PCP Nurse Practitioner Community Health; Visit Provider Advanced Practice Midwife | DX: N94.818 Other vulvodynia (principal); N94.19 Other specified dyspareunia | CPT/HCPCS: 87480; 87510; 87660 ==

== ENCOUNTER 2024-10-02 09:40 | Outpatient (CLI) | payer OTHER, SELFPAY ==
[2024-10-02 14:47] LABS: HCT 41.1 % (36.0-46.0); HGB 13.7 g/dL (11.2-15.7); MCH 31.1 pg (27.0-33.0); MCHC 33.3 % (32.0-36.0); MCV 93 fL (80-95); MPV 11.1 fL (8.0-11.0); Platelet Count 171 10^3/uL (130-400); RBC 4.41 10^6/uL (3.93-5.22); RDW 11.7 % (11.7-14.6); RDW-SD 40.1 fL; WBC 8.14 10^3/uL (4.4-10.8)
[2024-10-02 15:47] LABS: Iron 69 ug/dL (50-170); Total Iron Binding Capacity 316 ug/dL (250-450); Transferrin Sat 22 % (15-50)
[2024-10-02 16:17] LABS: ALT 27 U/L (14-59); AST 19 U/L (15-37); Alkaline Phosphatase 50 U/L (46-116); Anion Gap 5.6 mmol/L (3-11); BUN 12 mg/dL (7-18); Bilirubin, Total 0.5 mg/dL (0.2-1.0); CO2 30.4 mmol/L (21.0-32.0); CREATININE 0.7 mg/dL (0.55-1.02); Calcium 8.8 mg/dL (8.5-10.1); Chloride 104 mmol/L (98-107); Estimated GFR 112.05 (mL/min/1.73m2); Glucose 91 mg/dL (74-106); Potassium 3.9 mmol/L (3.5-5.1); Sodium 140 mmol/L (136-145); TSH (W/Ref FT4) 1.92 uIU/mL (0.36-3.74); Total Protein 7.2 g/dL (6.4-8.2); Vitamin D 25 Total 25 ng/mL (30-100)
[2024-10-02 16:48] LABS: Ferritin 41 ng/mL (8-252)
== END 2024-10-02 09:41 | disposition home or self-care (01) ==
LOC: LBO 09:40
PROVIDERS: PCP Nurse Practitioner Community Health; Visit Provider Obstetrics & Gynecology
DX: N95.1 Menopausal and female climacteric states (principal); R53.83 Other fatigue; Z3A.28 28 weeks gestation of pregnancy; N93.9 Abnormal uterine and vaginal bleeding, unspecified
CPT/HCPCS: 36415; 80053; 82306; 85027; 82728; 83036; 83540; 83550; 84443